=== PATIENT | female | born 1945 | race Caucasian/White ===

== ENCOUNTER 2017-09-01 13:59 | Inpatient (IN) | payer MEDICARE ==
[~2017-09-01] VITALS: Ht 165.1 cm; Wt 80.0 kg
[~2017-09-01 13:59] MED LIST: ACET325T14 PO; AMLO5TAB2 PO; AMOX1TAB12 PO; ASPI-515 PO; ASPI-650 PO; DILT120C9 PO; ENAL20TA PO; METO25TA35 PO; METO50TA82 PO; OXYC5TAB3 PO; RIVA20TA PO
[2017-09-01] MEDS ORDERED: FUROSEMIDE 40 MG/4 ML IV ONE (15:30)
[2017-09-01 15:31] LABS: BASOPHILS # (AUTO) 0.11 x10^3/uL (0-0.1); BASOPHILS % (AUTO) 1 % (0-1); EOSINOPHILS # (AUTO) 0.04 x10^3/uL (0-0.4); EOSINOPHILS % (AUTO) 0 % (1-7); LYMPHOCYTES # (AUTO) 0.85 x10^3/uL (1-3.4); LYMPHOCYTES % (AUTO) 9 % (22-44); MD NO; MEAN CORPUSCULAR HGB CONC 33.1 g/dL (32.4-35.8); MEAN CORPUSCULAR VOLUME 96.6 fL (80-100); MEAN PLATELET VOLUME 8.9 fL (7.4-10.4); MONOCYTES # (AUTO) 0.61 x10^3/uL (0.2-0.8); MONOCYTES % (AUTO) 6 % (2-9); NEUTROPHILS % (AUTO) 83 % (42-75); PLATELET COUNT 250 x10^3/uL (130-400); RED BLOOD COUNT 4.39 x10^6/uL (3.82-5.3); RED CELL DISTRIBUTION WIDTH 15.2 % (9.6-15.2)
[2017-09-01 15:38] LABS: INTERNATIONAL NORMALIZED RATIO 1.22 (0.93-1.1); PROTHROMBIN TIME 12.6 Seconds (9.6-11.5)
[2017-09-01 15:44] LABS: ALBUMIN 3.8 g/dL (3.4-5.0); ANION GAP 8 mmol/L (5-15); CALCIUM 8.7 mg/dL (8.5-10.1); CHLORIDE 108 mmol/L (98-107)
[2017-09-01 15:50] LABS: ALANINE AMINOTRANSFERASE 36 U/L (12-78); ALKALINE PHOSPHATASE 93 U/L (45-117); BILIRUBIN,TOTAL 1.4 mg/dL (0.2-1.0); CREATININE 0.81 mg/dL (0.55-1.02); FREE T4 (FREE THYROXINE) 1.41 ng/dL (0.76-1.46); TOTAL PROTEIN 7.6 g/dL (6.4-8.2); TROPONIN I < 0.015 ng/mL (0.000-0.045)
[2017-09-01] MEDS ORDERED: FUROSEMIDE 20 MG/2 ML ONE (16:33)
[2017-09-01] MEDS ORDERED: GUAIFENESIN/DM 200-20MG, 10ML UDC PO PRN (17:30)
[2017-09-01] MEDS ORDERED: DOCUSATE 100 MG CAPSULE PO PRN (17:30)
[2017-09-01] MEDS ORDERED: ONDANSETRON 2MG/ML, 2ML IVPush PRN (17:30)
[2017-09-01] MEDS ORDERED: ACETAMINOPHEN 325 MG TABLET PO PRN (17:30)
[2017-09-01] MEDS ORDERED: OXYcodone IR 5MG TABLET PO PRN (17:30)
[2017-09-01] MEDS ORDERED: POLYETHYLENE GLYCOL 17 GM PACKET PO PRN (17:30)
[2017-09-01] MEDS ORDERED: BISACODYL 10 MG SUPP PR PRN (17:30)
[2017-09-01] MEDS ORDERED: TRAZODONE 50MG TABLET PO PRN (17:30)
[2017-09-01] MEDS ORDERED: LABETALOL 5MG/ML, 20ML IVPush PRN (17:30)
[2017-09-01] MEDS ORDERED: ONDANSETRON ODT 4 MG PO PRN (17:30)
[2017-09-01 18:21] LABS: FREE T4 (FREE THYROXINE) 1.33 ng/dL (0.76-1.46); TROPONIN I < 0.015 ng/mL (0.000-0.045)
[2017-09-01 21:04] VITALS: BP 150/98
[2017-09-01] MEDS: FAMOTIDINE 20 MG TABLET PO SCH (22:18)
[2017-09-01] MEDS: METOPROLOL TARTRATE 50 MG TABLET PO SCH (22:18)
[2017-09-01 23:43] LABS: TROPONIN I < 0.015 ng/mL (0.000-0.045)
[2017-09-02 00:59] VITALS: BP 118/75
[2017-09-02 05:42] LABS: CHLORIDE 109 mmol/L (98-107)
[2017-09-02 05:47] LABS: BASOPHILS # (AUTO) 0.08 x10^3/uL (0-0.1); BASOPHILS % (AUTO) 1 % (0-1); EOSINOPHILS # (AUTO) 0.11 x10^3/uL (0-0.4); EOSINOPHILS % (AUTO) 2 % (1-7); LYMPHOCYTES # (AUTO) 0.87 x10^3/uL (1-3.4); LYMPHOCYTES % (AUTO) 14 % (22-44); MD NO; MEAN CORPUSCULAR HEMOGLOBIN 32.4 pg (27.0-34.8); MEAN CORPUSCULAR HGB CONC 33.4 g/dL (32.4-35.8); MEAN CORPUSCULAR VOLUME 96.9 fL (80-100); MEAN PLATELET VOLUME 8.9 fL (7.4-10.4); MONOCYTES # (AUTO) 0.45 x10^3/uL (0.2-0.8); MONOCYTES % (AUTO) 7 % (2-9); NEUTROPHILS # (AUTO) 4.87 x10^3/uL (1.8-6.8); NEUTROPHILS % (AUTO) 76 % (42-75); PLATELET COUNT 194 x10^3/uL (130-400); RED BLOOD COUNT 3.85 x10^6/uL (3.82-5.3); RED CELL DISTRIBUTION WIDTH 15.4 % (9.6-15.2)
[2017-09-02 05:54] LABS: ANION GAP 9 mmol/L (5-15); CALCIUM 8.7 mg/dL (8.5-10.1); CREATININE 0.79 mg/dL (0.55-1.02)
[2017-09-02 07:51] VITALS: BP 142/86
[2017-09-02] MEDS ORDERED: RIVAROXABAN 20 MG TABLET PO SCH (09:00)
[2017-09-02] MEDS: FAMOTIDINE 20 MG TABLET PO SCH ×2 (09:25→19:59)
[2017-09-02] MEDS: METOPROLOL TARTRATE 50 MG TABLET PO SCH ×2 (09:25→19:59)
[2017-09-02] MEDS: DILTIAZEM 120 MG CAP.ER.24H PO SCH (09:25)
[2017-09-02] MEDS: ASPIRIN 81 MG TABLET EC PO SCH (09:25)
[2017-09-02 20:04] VITALS: BP 126/87
[2017-09-03 02:41] VITALS: BP 124/74
[2017-09-03 06:01] LABS: CHOL/HDL RATIO 3.6; LDL/HDL RATIO 1.7 (0.5-3.0)
[2017-09-03 06:29] VITALS: BP 143/85
[2017-09-03] MEDS: FAMOTIDINE 20 MG TABLET PO SCH (09:16)
[2017-09-03] MEDS: METOPROLOL TARTRATE 50 MG TABLET PO SCH (09:16)
[2017-09-03] MEDS: DILTIAZEM 120 MG CAP.ER.24H PO SCH (09:16)
[2017-09-03] MEDS: ASPIRIN 81 MG TABLET EC PO SCH (09:16)
[2017-09-03] MEDS ORDERED: FUROSEMIDE 20 MG/2 ML IV ONE (15:00)
[2017-09-03 15:09] VITALS: BP 130/87
== END 2017-09-03 16:30 | disposition home or self-care (01) | DRG 292 ==
LOC: ED 16:48 → EDIP 16:49 → ED 17:05 → 4WST 21:01 → DCLOUNGE 09-03 16:07
PROVIDERS: ADMIT Hospitalist; ATTEND Hospitalist
DX: I11.0 Hypertensive heart disease with heart failure (principal); D68.69 Other thrombophilia; I27.20 Pulmonary hypertension, unspecified; I48.91 Unspecified atrial fibrillation; I50.33 Acute on chronic diastolic (congestive) heart failure; Z85.3 Personal history of malignant neoplasm of breast; Z86.73 Personal history of transient ischemic attack (TIA), and cerebral infarction without residual deficits; Z90.11 Acquired absence of right breast and nipple; Z87.891 Personal history of nicotine dependence; Z92.3 Personal history of irradiation
CPT/HCPCS: 36415; 80048; 80053; 80061; 83735; 83880; 84439; 84443; 84484; 85025; 85610; 85730; 93005; 93306; 96374; J1940

== ENCOUNTER → 2018-01-06 | Outpatient (CLI) | payer MEDICARE | END | disposition home or self-care (01) | LOC: CFH 10:31 | PROVIDERS: ATTEND Internal Medicine Cardiovascular Disease | DX: I21.09 ST elevation (STEMI) myocardial infarction involving other coronary artery of anterior wall (principal); I25.89 Other forms of chronic ischemic heart disease; I49.3 Ventricular premature depolarization; I08.0 Rheumatic disorders of both mitral and aortic valves; I10 Essential (primary) hypertension; I48.91 Unspecified atrial fibrillation | CPT/HCPCS: 78452; 93017; 93306; A9502 ==

== ENCOUNTER 2018-04-06 07:28 | Day surgery (SDC) | payer MEDICARE ==
[~2018-04-06] VITALS: Ht 165.1 cm; Wt 72.0 kg
[~2018-04-06 07:28] MED LIST changes: -AMLO5TAB2 PO; +AMLO5TAB7 PO
[2018-04-06] MEDS ORDERED: POTA20TA14 PO (07:53)
[2018-04-06] MEDS ORDERED: FURO20TA3 PO (07:53)
[2018-04-06] MEDS ORDERED: SODIUM CHLORIDE 0.9% 1,000 ML IV SCH (08:00)
[2018-04-06] MEDS ORDERED: BENZOCAINE AEROSOL SPRAY 20%, 60ML TP PRN (08:00)
[2018-04-06] MEDS ORDERED: PLEASE ENTER HEIGHT AND WEIGHT MC SCH (08:00)
[2018-04-06] MEDS ORDERED: LIDOCAINE 2% VISCOUS, 100ML MM PRN (08:00)
[2018-04-06 08:02] VITALS: BP 180/109
[2018-04-06] MEDS ORDERED: PROPOFOL 10 MG/ML, 20ML ONE (09:33)
== END 2018-04-06 11:15 | disposition home or self-care (01) ==
LOC: CACL 07:28
PROVIDERS: ATTEND Internal Medicine Cardiovascular Disease
DX: I34.0 Nonrheumatic mitral (valve) insufficiency (principal); I35.8 Other nonrheumatic aortic valve disorders; I10 Essential (primary) hypertension; Z90.11 Acquired absence of right breast and nipple; Z72.89 Other problems related to lifestyle; Z79.82 Long term (current) use of aspirin; Z86.73 Personal history of transient ischemic attack (TIA), and cerebral infarction without residual deficits; Z88.5 Allergy status to narcotic agent; Z88.8 Allergy status to other drugs, medicaments and biological substances; Z98.890 Other specified postprocedural states
CPT/HCPCS: 93312; 93321; 93325; J2704